=== PATIENT | female | born 1955 | race African-American/Black ===

== ENCOUNTER 2017-07-28 17:01 | Inpatient (IN) | payer MEDICAID, MEDICARE ==
[~2017-07-28] VITALS: Ht 170.2 cm; Wt 62.6 kg
[~2017-07-28 17:01] MED LIST: ACET250T9 PO; ACET325T53 PO; ALBU2.5V38 IH; AMLO5TAB2 PO; ASCO500T9 PO; ASPI81TA31 PO; ATEN100T PO; BUDE10.2 IH; FURO10VI IV; HYDR25TA4 PO; HYDR28.33 TP; INSU100C MC; LACT10SO PO; OLME40TA12 PO; PANT40TA2 PO; POTA-10 PO; PRED20TA PO; SITA100T PO; TIOT18CA3 IH; ZOLP5TAB8 PO
--- NOTE | 2017-07-28 17:09 | NUR ---
pt tried to elope from the hospital. called [facility] and brought the pt back to room. security at bedside
[2017-07-28] MEDS ORDERED: OLANZAPINE 5 MG TABLET PO ONE (17:15)
--- NOTE | 2017-07-28 17:15 | NUR ---
pt refused xyprexa and said zyprexa does not work on her and requested risperdone instead, notifeid
[2017-07-28] MEDS ORDERED: OLANZAPINE 5 MG TABLET ONE (17:19)
[2017-07-28] MEDS ORDERED: LOSA100T15 PO (17:22)
[2017-07-28] MEDS ORDERED: DIVA250T4 PO (17:22)
[2017-07-28] MEDS ORDERED: METF10004 PO (17:22)
[2017-07-28] MEDS ORDERED: LORA2VIA6 IV (17:22)
[2017-07-28] MEDS ORDERED: PIOG45TA19 PO (17:22)
[2017-07-28] MEDS ORDERED: RISP3TAB14 PO (17:22)
[2017-07-28] MEDS ORDERED: HYDR-4076 PO (17:22)
[2017-07-28] MEDS ORDERED: HYDR453. TP (17:22)
[2017-07-28] MEDS ORDERED: OMEP40CA37 PO (17:22)
[2017-07-28] MEDS ORDERED: CITA10TA9 PO (17:22)
[2017-07-28] MEDS ORDERED: CLON0.1T PO (17:22)
[2017-07-28] MEDS ORDERED: DOCU100C36 PO (17:22)
[2017-07-28] MEDS ORDERED: ATOR20TA PO (17:22)
--- NOTE | 2017-07-28 17:47 | NUR ---
pt refuses the risperdone because the risperdone she takes is orange, and this one is white. tried to explain the reason. pt still insisting not to take it at this time.
[2017-07-28] MEDS ORDERED: ALBUTEROL SULFATE 2.5 MG/3 ML NEBU IH PRN ×2 (18:30→19:00)
[2017-07-28] MEDS ORDERED: CLONIDINE HCL 0.1 MG TABLET PO PRN (18:30)
--- NOTE | 2017-07-28 18:32 | NUR ---
[facility] provided for pt per pt request
--- NOTE | 2017-07-28 18:46 | NUR ---
pt transfered to mhu in stable condition. pt calmed down after the code campos.
[2017-07-28] MEDS: ATORVASTATIN 20 MG TABLET PO SCH ×2 (20:24→20:28)
[2017-07-28 20:28] VITALS: BP 112/62
[2017-07-28] MEDS ORDERED: LORAZEPAM 1 MG TABLET PO PRN (20:30)
[2017-07-28] MEDS ORDERED: MAGNESIUM HYDROXIDE 30 ML LIQUID UDC PO PRN (20:30)
[2017-07-28] MEDS ORDERED: MAG HYDROX/AL HYDROX/SIMETH 30 ML LIQUID UDC PO PRN (20:30)
[2017-07-28] MEDS ORDERED: TEMAZEPAM 7.5 MG CAPSULE PO PRN (20:30)
[2017-07-28] MEDS ORDERED: ACETAMINOPHEN 325 MG TABLET PO PRN (20:30)
[2017-07-28] MEDS ORDERED: risperiDONE 1 MG TABLET PO SCH (21:00)
[2017-07-28] MEDS ORDERED: ATORVASTATIN 20 MG TABLET PO SCH (21:00)
[2017-07-28] MEDS ORDERED: diphenhydrAMINE 50 MG/1 ML VIAL IM ONE (21:45)
[2017-07-28] MEDS ORDERED: HALOPERIDOL LACTATE 5 MG/1 ML VIAL IM ONE (21:45)
[2017-07-28] MEDS ORDERED: LORAZEPAM 2 MG/1 ML VIAL IM ONE (21:45)
--- NOTE | 2017-07-28 22:00 | NUR ---
ADMISSION NOTE/CHEMICAL RESTRAINT NOTE: 61 Y.O FEMALE ADMITTED TO MHU FROM ER VIA WHEELCHAIR. Pt ON A 5150 FOR GD. ACCORDING TO THE HOLD, Pt WAS AT [facility] MED/SURG UNIT, AND REFUSING ALL MEDICATIONS AND CARE. Pt HAD INCREASED PARANOIA. Pt IS A POOR HISTORIAN, AND DENIED IMPATIENT ADMISSION, BUT NOW ACKNOWLEDGES MULTIPLE ADMISSIONS, THOUGH REFUSES MEDS, "BECAUSE I'M NOT SICK". Pt AGITATED, NON-COMPLIANT, AND EXIT-SEEKING WITHOUT A PLAN OF SELF CARE. Pt APPEARS TO REFLECT WHAT IS ON THE HOLD, RN CONCURS WITH HOLD. Pt GIVEN PATIENT RIGHTS HANDBOOK, UNIT RULES EXPLAINED. IMMEDIATELY UPON ADMISSION TO THE UNIT, Pt WAS ANGRY, LOUD, AGITATED, DEMANDING OF FOOD, HYGIENE ITEMS, AND PERSONAL BELONGINGS, INCLUDING CONTRABAND. Pt MOSTLY UNCOOPERATIVE WITH ADMISSION PROCESS AND STAFF DIRECTION. Pt REFUSED TO GIVE ANY PERSONAL OR MEDICAL INFORMATION, REFUSED TO SIGN ANY PAPERWORK. Pt ALSO REFUSED SCHEDULED HS LIPTOR, "BECAUSE MY CHOLESTEROL IS FINE". Pt REPEATEDLY DEMANDED TO "SMOKE A CIGARETTE", AND BECAME INCREASINGLY HOSTILE AND BELLIGERENT WHEN TOLD THERE WAS NO SMOKING. NICOTINE PATCH OFFERED AND REFUSED. Pt ATTEMPTED TO HIDE MONEY IN HER SOCK AND REFUSED TO GIVE IT TO STAFF UNTIL SECURITY WAS CALLED. Pt IS ANXIOUS, PARANOID, ACCUSATORY, ARGUMENTATIVE, AND SUSPICIOUS, Pt REFUSES REDIRECTION AT THIS TIME. Pt REFUSED PO PRN ATIVAN, CONTINUED TO TELL, SCREAM, AND POSTURE AT STAFF. DR HERRING NOTIFIED OF Pt BEHAVIOR, AND IM OF ATIVAN 2mg, BENADRYL 25mg, AND HALDOL 5mg ORDERED AND ADMINISTERED WITH SECURITY PRESENT. Pt CALMED AFTER 15 MINUTES AND THEN FELL ASLEEP. BELONGINGS INVENTORIED IN FRONT OF Pt AND OTHER STAFF, REFUSED TO SIGN ALL PAPERWORK. Pt PLACED IN HOSPITAL GOWN AND PANTS, SKIN INTACT. Pt REFUSED PNA VACCINATION. DR ZUNIGA AND DR HERRING NOTIFIED OF ADMISSION, ORDERS RECEIVED.
[2017-07-29] MEDS: PANTOPRAZOLE SODIUM 40 MG TABLET.DR PO SCH (06:34)
--- NOTE | 2017-07-29 06:50 | NUR ---
Pt REFUSED AM LABS AND SCHEDULED PROTONIX. ASSOCIATE [employer] M[employer]UFO.
[2017-07-29 07:30] VITALS: BP 192/124
[2017-07-29] MEDS: METFORMIN HCL 500 MG TABLET PO SCH ×2 (08:00→17:36)
[2017-07-29] MEDS: hydrALAZINE HCL 25 MG TABLET PO SCH ×3 (08:14→16:17)
[2017-07-29] MEDS: ASPIRIN 81 MG TAB.CHEW PO SCH (08:14)
[2017-07-29] MEDS: LOSARTAN POTASSIUM 50 MG TABLET PO SCH (08:15)
[2017-07-29] MEDS: CLONIDINE HCL 0.1 MG TABLET PO PRN (08:18)
[2017-07-29] MEDS: NICOTINE 21 MG/24HR PATCH TD SCH (08:20)
[2017-07-29] MEDS: ASCORBIC ACID 500 MG TABLET PO SCH (08:31)
[2017-07-29] MEDS: DOCUSATE SODIUM 100 MG CAPSULE PO SCH (08:31)
[2017-07-29] MEDS: PIOGLITAZONE HCL 15 MG TABLET PO SCH (08:32)
[2017-07-29] MEDS ORDERED: PIOGLITAZONE HCL 45 MG PO SCH (09:00)
[2017-07-29] MEDS ORDERED: ASCORBIC ACID 500 MG TABLET PO SCH (09:00)
[2017-07-29] MEDS ORDERED: Medication Not On Formulary EA (Omeprazole 40 MG) PO SCH (09:00)
[2017-07-29] MEDS ORDERED: DOCUSATE SODIUM 100 MG CAPSULE PO SCH (09:00)
[2017-07-29] MEDS ORDERED: Medication Not On Formulary EA (Losartan Potassium 100 MG) PO SCH (09:00)
[2017-07-29] MEDS ORDERED: Medication Not On Formulary EA (Metformin Hcl 1,000 MG) PO SCH (09:00)
[2017-07-29] MEDS ORDERED: hydrALAZINE HCL 25 MG TABLET PO SCH (09:00)
[2017-07-29] MEDS ORDERED: ASPIRIN 81 MG TAB.CHEW PO SCH (09:00)
[2017-07-29 09:33] VITALS: BP 168/89
--- NOTE | 2017-07-29 14:56 | NUR ---
Firearms Report: [employer] completed and submitted [employer]arms Report on 07/29/17.
[2017-07-29 15:20] VITALS: BP 157/80
--- NOTE | 2017-07-29 15:36 | NUR ---
Initial Discharge Instructions: Patient reports that she "thinks she owns a house," but cannot remember where the house is or when she lived in it. Per chart, the patient had been living at [facility] [[address] [place] [address]; [phone]] before her 2 week stay at [facility]. Spoke with Cooper at the facility, who states that the patient's bed hold is up. Patient reports she wants to be "sent to her mother's." However, patient would not disclose her mother's name or contact information, stating, "She wouldn't want you to know that." Pt reports that she does not have a primary contact, and does not want SS to attempt to contact her family. SW will continue to speak with the patient and MD regarding appropriate discharge plans. SW will form a safe and proper discharge plan.
[2017-07-29 20:20] VITALS: BP 154/79
[2017-07-29] MEDS: ATORVASTATIN 20 MG TABLET PO SCH (21:00)
--- NOTE | 2017-07-29 21:00 | NUR ---
RECEIVED PATIENT PACING THE MAIN HALLWAY, LOOKING AT WINDOWS, AND STANDING BY THE DOUBLE DOOR, SHE WAS ALSO OBSERVED STARING AT THE "EVACUATION PLAN" SIGNS. (PT IS ABLE TO AMBULATE WITH STEADY GAIT AND ABLE TO MAKE HER NEEDS KNOWN) PT IS NOTED EASILY IRRITABLE, TANGENTIAL, SUSPICIOUS, ARGUMENTATIVE. FLAT AFFECTED. LABILE MOOD. UNABLE TO BE REDIRECTED. SHE REFUSED LIPITOR QHS. SAFETY WAS EMPHASIS. WILL CONTINUE TO MONITOR CLOSELY.
[2017-07-29] MEDS: risperiDONE 1 MG TABLET PO SCH (21:45)
--- NOTE | 2017-07-29 21:45 | NUR ---
PATIENT WAS SEEN BY DR. HERRING. RECEIVED NEW ORDERS TO ADMINISTER RISPERIDONE 3MG PO QHS.
--- NOTE | 2017-07-29 22:15 | NUR ---
PATIENT REFUSED RISPERIDONE 3MG PO QHS. MULTIPLE REDIRECTION GIVEN, YET INEFFECTIVE. WILL CONTINUE TO MONITOR PT CLOSELY.
--- NOTE | 2017-07-30 05:00 | NUR ---
PT SLEPT FOR APPROX. 8HRS THROUGH THE NIGHT. PATIENT APPROACHED THE NURSING STATION. SHE REPORTED TO THIS PACKING LINE WORKER THAT HER ROOMMATE TOOK A HAIR NET THAT SHE HAD INSIDE AND ENVELOPE AND HER POCKET BOOK. UPON INTERVIEW WITH HER ROOMMATE, SHE DENIED TAKING ANYTHING FROM THIS PATIENT. SECURITY WAS CALLED AND THEY SEARCHED ROOMMATE'S DRAWERS; HOWEVER, THEY DID NOT FIND THE ITEMS THAT SHE CLAIMED SHE TOOK. PATIENT WAS REDIRECTED. SHE AGREED TO TAKE A SHOWER.
[2017-07-30] MEDS: PANTOPRAZOLE SODIUM 40 MG TABLET.DR PO SCH (06:46)
[2017-07-30 08:00] VITALS: BP 184/96
[2017-07-30] MEDS: METFORMIN HCL 500 MG TABLET PO SCH ×3 (08:00→17:59)
[2017-07-30] MEDS: NICOTINE 21 MG/24HR PATCH TD SCH ×2 (09:00→09:14)
[2017-07-30] MEDS: DOCUSATE SODIUM 100 MG CAPSULE PO SCH ×2 (09:00→09:14)
[2017-07-30] MEDS: LOSARTAN POTASSIUM 50 MG TABLET PO SCH ×2 (09:00→09:15)
[2017-07-30] MEDS: risperiDONE 1 MG TABLET PO SCH ×4 (09:00→21:42)
[2017-07-30] MEDS: hydrALAZINE HCL 25 MG TABLET PO SCH ×3 (09:16→16:52)
[2017-07-30] MEDS: ASPIRIN 81 MG TAB.CHEW PO SCH (09:16)
[2017-07-30] MEDS: PIOGLITAZONE HCL 15 MG TABLET PO SCH ×2 (09:17→09:34)
[2017-07-30] MEDS: ASCORBIC ACID 500 MG TABLET PO SCH (09:17)
[2017-07-30] MEDS: CLONIDINE HCL 0.1 MG TABLET PO PRN ×2 (09:43→16:52)
[2017-07-30] MEDS ORDERED: DEXTROSE 50% 50 ML DISP.SYRIN IV PRN (12:00)
[2017-07-30 12:24] LABS: BASOPHILS % (AUTO) 0.6 % (0.0-2.0); EOSINOPHILS # (AUTO) 0.1 K/uL (0.0-0.7); EOSINOPHILS % (AUTO) 1.2 % (0.0-7.0); HEMATOCRIT 41.9 % (31.2-41.9); HEMOGLOBIN 14.3 g/dL (10.9-14.3); LYMPHOCYTES # (AUTO) 1.6 K/uL (20.0-40.0); LYMPHOCYTES % (AUTO) 23.3 % (20.5-51.5); MEAN CORPUSCULAR HEMOGLOBIN 29.9 uug (24.7-32.8); MEAN CORPUSCULAR HGB CONC 34 g/dL (32.3-35.6); MEAN CORPUSCULAR VOLUME 87.9 fL (75.5-95.3); MONOCYTES # (AUTO) 0.7 K/uL (2.0-10.0); NEUTROPHILS # (AUTO) 4.5 K/uL (1.8-8.9); NEUTROPHILS % (AUTO) 64.9 % (38.5-71.5); PLATELET COUNT (AUTO) 169 K/uL (179-408); RED BLOOD CELL COUNT(AUTO) 4.77 MIL/uL (3.63-4.92)
--- NOTE | 2017-07-30 12:26 | NUR ---
received patient alert and oriented times rwo with flat affect patient up in chair in day room ststing she s not taking these meds they are not her meds, patient refused all meds except asa 81mg and apresoline patient very argumentive , patient in hier roomm wth no self disclousiure
[2017-07-30 12:32] LABS: CREATININE 0.7 mg/dL (0.6-1.3); MAGNESIUM 1.5 mg/dL (1.8-2.4); PHOSPHOROUS 4.3 mg/dL (2.5-4.9); POTASSIUM 4.4 mmol/L (3.5-5.1)
[2017-07-30 16:00] VITALS: BP 167/66
[2017-07-30] MEDS: BLOOD SUGAR DIAGNOSTIC 1 EACH STRIP VI SCH ×2 (16:30→21:00)
[2017-07-30 20:00] VITALS: BP 158/75
--- NOTE | 2017-07-30 20:30 | NUR ---
RECEIVED PATIENT IN THE DAY ROOM. SHE IS NOTED A/O X 2 ABLE TO AMBULATE WITH STEADY GAIT AND ABLE TO MAKE HER NEEDS KNOWN. SHE ANSWER QUESTIONS WITH FEW WORDS. SHE CONTINUE SUSPICIOUS, EASILY IRRITABLE, GUARDED, FLAT AFFECT, LOW MOOD, ARGUMENTATIVE, ANGRY VOICE AT TIME. SHE REFUSED ACCU-CHECKS, REFUSED LIPITOR AND RISPERIDONE. SHE STATED, "I DON'T TAKE THAT MEDICATION, IT IS BAD FOR ME." MUTIPLE REDIRECTION GIVEN, YET INEFFECTIVE. SAFETY EMPHASIS. WILL CONTINUE TO MONITOR CLOSELY.
[2017-07-30] MEDS: ATORVASTATIN 20 MG TABLET PO SCH (21:00)
--- NOTE | 2017-07-30 21:45 | NUR ---
PT WAS SEEN AND EVALUATED BY DR HERRING HERE IN THE UNIT. PATIENT CONTINUE SUSPICIOUS, POOR INSIGHT AND JUDGMENT TO THE REASON FOR HER ADMISSION. PATIENT WAS EXPLAINED HER MEDICATION: RISPERIDONE MULTIPLE TIMES IN FRONT OF DR HERRING. SHE FINALLY TOOK RISPERIDONE A 3MG PO QHS AFTER MULTIPLE REDIRECTIONS. .
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
--- NOTE | 2017-07-31 06:22 | NUR ---
PATIENT SLEPT FOR APPROX 6.30HRS THROUGH THE NIGHT. SHE CONTINUE DELUSION, AND DISORGANIZED.
[2017-07-31] MEDS: PANTOPRAZOLE SODIUM 40 MG TABLET.DR PO SCH (06:50)
[2017-07-31] MEDS: BLOOD SUGAR DIAGNOSTIC 1 EACH STRIP VI SCH ×4 (06:59→20:26)
--- NOTE | 2017-07-31 06:59 | NUR ---
PATIENT REFUSED ACCUCHECKS AND PROTONIX, SHE IS NOTED EASILY IRRITABLE, BELLIGERENT AND UNREDIRECTABLE. WILL CONTINUE TO MONITOR CLOSELY.
[2017-07-31 07:30] VITALS: BP 158/93
[2017-07-31] MEDS: PIOGLITAZONE HCL 15 MG TABLET PO SCH (08:55)
[2017-07-31] MEDS: risperiDONE 1 MG TABLET PO SCH (08:55)
[2017-07-31] MEDS: hydrALAZINE HCL 25 MG TABLET PO SCH ×3 (08:56→16:36)
[2017-07-31] MEDS: METFORMIN HCL 500 MG TABLET PO SCH ×2 (08:56→18:00)
[2017-07-31] MEDS: ASPIRIN 81 MG TAB.CHEW PO SCH (08:56)
[2017-07-31] MEDS: DOCUSATE SODIUM 100 MG CAPSULE PO SCH (09:00)
[2017-07-31] MEDS: ASCORBIC ACID 500 MG TABLET PO SCH (09:00)
[2017-07-31] MEDS: NICOTINE 21 MG/24HR PATCH TD SCH (09:00)
[2017-07-31] MEDS: LOSARTAN POTASSIUM 50 MG TABLET PO SCH (09:00)
--- NOTE | 2017-07-31 09:15 | NUR ---
RECEIVED Pt IN THE DAY ROOM, A/O X 2 ABLE TO AMBULATE WITH STEADY GAIT AND ABLE TO MAKE HER NEEDS KNOWN. Pt IS EASILY AGITATED AND VERBALLY ABUSIVE. Pt WAS SEEN YELLING AT OTHER PATIENTS IN THE DAY ROOM, NURSE INTERVENED AND WARNED Pt REGARDING YELLING AT OTHER PATIENTS. COMPLIANT WITH CERTAIN MEDS (HTN AND PSYCH MEDS) BUT REFUSES ALL THE OTHER MEDS. WILL CONTINUE TO MONITOR Pt THROUGHOUT THE DAY.
--- NOTE | 2017-07-31 11:30 | NUR ---
Pt REFUSING ACCUCHECK. WHEN ASKED FOR A REASON FOR REFUSAL, Pt REFUSED TO ANSWER.
--- NOTE | 2017-07-31 13:30 | NUR ---
Pt BLOOD PRESSURE PRIOR TO AFTERNOON MEDS WAS 188/84 WITH 97 HR. ADMINISTERED HYDRALAZINE 25 MG PER MD ORDER, AND ADMINISTERED CATAPRES 0.5 MG PO PRN PER MD ORDER. WILL CONTINUE TO MONITOR Pt BP.
[2017-07-31] MEDS: CLONIDINE HCL 0.1 MG TABLET PO PRN ×2 (13:41→21:44)
[2017-07-31 14:32] VITALS: BP 186/93
--- NOTE | 2017-07-31 16:37 | NUR ---
Pt CONTINUES TO REFUSE ACCUCHECK. COMPLIANT WITH BP MONITORING. BP AT THIS TIME IS 170/73 WITH 80 HR. WILL ADMINISTER HYDRALAZINE 25 MG PO PER MD ORDER.
[2017-07-31 20:06] VITALS: BP 172/73
[2017-07-31] MEDS: ATORVASTATIN 20 MG TABLET PO SCH (20:27)
[2017-07-31] MEDS ORDERED: risperiDONE 1 MG/ML UDC PO SCH (21:00)
--- NOTE | 2017-07-31 21:45 | NUR ---
GPS: BLOOD PRESSURE 172/73, CLONIDINE 0.1 MG PO GIVEN.
[2017-08-01] MEDS: PANTOPRAZOLE SODIUM 40 MG TABLET.DR PO SCH (06:18)
--- NOTE | 2017-08-01 06:20 | NUR ---
GPS: REMAIN UNCOOPERATIVE WITH MEDICATION AND NURSING CARE. CONTINUE VERBALLY ABUSIVE TO STAFF. SLEPT 7:30 HRS THROUGH THE NIGHT. RESTING IN BED COMFORTABLY.CONTINUE PLAN OF CARE.
[2017-08-01] MEDS: BLOOD SUGAR DIAGNOSTIC 1 EACH STRIP VI SCH ×4 (06:40→20:08)
[2017-08-01] MEDS: METFORMIN HCL 500 MG TABLET PO SCH ×2 (08:00→18:00)
[2017-08-01] MEDS: ASPIRIN 81 MG TAB.CHEW PO SCH (08:04)
[2017-08-01] MEDS: CLONIDINE HCL 0.1 MG TABLET PO PRN (08:05)
[2017-08-01] MEDS: hydrALAZINE HCL 25 MG TABLET PO SCH ×3 (08:05→16:52)
[2017-08-01] MEDS: risperiDONE 2 MG TABLET PO SCH (08:05)
[2017-08-01 08:06] VITALS: BP 198/97
--- NOTE | 2017-08-01 08:30 | NUR ---
RECEIVED Pt IN ROOM SITTING ON BED EATING BREAKFAST, A/O X 2, SPOKE TO Pt REGARDING ELEVATED BP OF 198/97, TRIED TO ADMINISTER ALL MORNING MEDS BUT Pt REFUSED MOST MEDS. Pt AGREED TO TAKE HYDRALAZINE 25 MG, CATAPRES 0.1 MG PO PRN, AND PSYCH MEDS BUT REFUSED EVERYTHING ELSE. Pt REFUSED TO TAKE LOSARTAN EVEN AFTER ENCOURAGEMENTS FROM NURSE AND CHARGE NURSE. Pt STATED "THAT MEDICATION MAKES ME FEEL BAD AND GIVES ME RASHES." NURSE CONTACTED AND LEFT MESSAGE FOR DR. NADIA MD REGARDING MED CONCERNS, AWAITING FURTHER ORDERS AND INSTRUCTIONS. WILL CONTINUE TO MONITOR Pt BP CLOSELY.
[2017-08-01] MEDS: ASCORBIC ACID 500 MG TABLET PO SCH (08:33)
[2017-08-01] MEDS: LOSARTAN POTASSIUM 50 MG TABLET PO SCH (08:33)
[2017-08-01] MEDS: NICOTINE 21 MG/24HR PATCH TD SCH (08:33)
[2017-08-01] MEDS: DOCUSATE SODIUM 100 MG CAPSULE PO SCH (08:34)
[2017-08-01] MEDS: PIOGLITAZONE HCL 15 MG TABLET PO SCH (08:43)
--- NOTE | 2017-08-01 11:19 | NUR ---
Pt CONTINUES TO REFUSE ACCUCHECK EVEN WITH NURSE ENCOURAGEMENT AND WARNINGS OF EFFECTS THAT COULD RESULT FROM REFUSING MEDS AND SERVICES. Pt IS EASILY AGITATED. DR. SANTOS TALKED TO Pt THIS MORNING AND ADJUSTED FREQUENCY OF RISPERDAL FROM AM TO AMHS. WILL MONITOR BP CLOSELY THROUGHOUT SHIFT.
[2017-08-01 12:38] VITALS: BP 152/86
--- NOTE | 2017-08-01 12:39 | NUR ---
RECHECKED Pt VITAL SIGNS, IMPROVED BP OF 152/84, HR 100. Pt COMPLIANT WITH HTN MEDS THIS AFTERNOON, ADMINISTERED HYDRALAZINE 25 MG PO. WILL CONTINUE TO MONITOR Pt BP CLOSELY.
[2017-08-01 14:05] VITALS: BP 149/75
[2017-08-01] MEDS: AMLODIPINE 5 MG TABLET PO SCH (14:09)
--- NOTE | 2017-08-01 14:18 | NUR ---
RECEIVED ORDER FOR AMLODIPINE BESYLATE 5 MG PO. RECHECKED VS, BP OF 149/75, 98 HR. ADMINISTERED AMLODIPINE BESYLATE 5 MG PO PER MD ORDER. WILL CONTINUE TO CLOSELY MONITOR Pt BP THROUGHOUT SHIFT.
--- NOTE | 2017-08-01 16:30 | NUR ---
Pt CONTINUES TO REFUSE ACCUCHECKS, INITIALLY REFUSED VITAL SIGNS CHECK BUT AGREED AFTER ENCOURAGEMENT. BP STILL ELEVATED AT 150/77 WITH HR OF 82. ADMINISTERED HYDRALAZINE 25 MG PO PER MD ORDER. Pt DENIES HEADACHES OR DISCOMFORT. WILL CONTINUE TO MONITOR BP CLOSELY FOR REMAINDER OF SHIFT.
[2017-08-01] MEDS ORDERED: LORAZEPAM 2 MG/1 ML VIAL IM ONE (17:30)
[2017-08-01] MEDS ORDERED: diphenhydrAMINE 50 MG/1 ML VIAL IM ONE (17:30)
[2017-08-01] MEDS ORDERED: HALOPERIDOL LACTATE 5 MG/1 ML VIAL IM ONE ×2 (17:30)
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
[2017-08-01 19:52] VITALS: BP 151/68
[2017-08-01] MEDS: ATORVASTATIN 20 MG TABLET PO SCH (20:08)
[2017-08-01] MEDS ORDERED: risperiDONE 1 MG TABLET PO SCH (21:00)
[2017-08-02] MEDS: PANTOPRAZOLE SODIUM 40 MG TABLET.DR PO SCH (06:25)
[2017-08-02] MEDS: BLOOD SUGAR DIAGNOSTIC 1 EACH STRIP VI SCH ×4 (06:39→20:16)
--- NOTE | 2017-08-02 06:49 | NUR ---
RECEIVED IN HER BED SLEEPING, APPEARS SEDATED UPON WAKING. Pt NOTED TO BE SLEEPY AND IRRITABLE. REFUSED SCHEDULED HS LIPITOR AND ACCU CHECK. RISKS AND BENEFITS EXPLAINED TO Pt WHO THEN RESPONDED, "I DON'T GIVE A SHIT." Pt APPEARS SUSPICIOUS AND PARANOID WITH REGARD TO HER MEDICATIONS. HS RISPERDAL HELD D/T INCREASED SEDATION S/P IM INJECTION AT 1730. Pt REMAINS UNCOOPERATIVE, ARGUMENTATIVE, OPPOSITIONAL, DEMANDING, LABILE, AND VERBALLY AGGRESSIVE. VS STABLE, NO C/O PAIN. REFUSED AM PROTONIX, LET RN TAKE ACCU CHECK AFTER EXTENSIVE PROMPTING. IN NO ACUTE PHYSICAL DISTRESS. SLEPT 10.30 HOURS.
[2017-08-02] MEDS: METFORMIN HCL 500 MG TABLET PO SCH ×2 (07:42→18:00)
[2017-08-02 08:00] VITALS: BP 174/102
[2017-08-02] MEDS: risperiDONE 2 MG TABLET PO SCH (08:26)
[2017-08-02] MEDS: hydrALAZINE HCL 25 MG TABLET PO SCH ×3 (08:27→17:01)
[2017-08-02] MEDS: ASPIRIN 81 MG TAB.CHEW PO SCH (08:27)
[2017-08-02] MEDS: AMLODIPINE 5 MG TABLET PO SCH (08:27)
[2017-08-02] MEDS: PIOGLITAZONE HCL 15 MG TABLET PO SCH (08:28)
[2017-08-02] MEDS: DOCUSATE SODIUM 100 MG CAPSULE PO SCH (08:28)
[2017-08-02] MEDS: LOSARTAN POTASSIUM 50 MG TABLET PO SCH (08:29)
[2017-08-02] MEDS: ASCORBIC ACID 500 MG TABLET PO SCH (08:29)
[2017-08-02] MEDS: NICOTINE 21 MG/24HR PATCH TD SCH (08:29)
--- NOTE | 2017-08-02 08:30 | NUR ---
RECEIVED Pt IN DAY ROOM, A/O X 2 WITH NOTED AGITATION. Pt TOOK CERTAIN MEDS BUT REFUSED OTHER MEDS INCLUDING INSULIN. EXPLAINED RISKS AND BENEFITS AND REMINDED Pt OF ELEVATED BLOOD SUGAR BUT Pt STILL REFUSED STATING, "I DON'T TAKE INSULIN BECAUSE IT WILL DROP MY BLOOD SUGAR TOO LOW." Pt CONTINUES TO BE EASILY AGITATED AND VERBALLY ABUSIVE. Pt REMINDED OF RULES AND PROTOCOLS THAT HAVE TO BE FOLLOWED IN THE UNIT. WILL CONTINUE TO CLOSELY MONITOR Pt BEHAVIOR. BP THIS MORNING WAS 174/102 WITH 93 HR. Pt CONTINUES TO REFUSE LOSARTAN, GIVEN ROUTINE HTN MEDS: HYDRALAZINE 25 MG PO, AMLODIPINE BESYLATE 5 MG PO, AND CATAPRES 0.1 MG PO PRN PER MD ORDER. WILL CONTINUE TO MONITOR Pt BP CLOSELY THROUGHOUT SHIFT.
[2017-08-02] MEDS: CLONIDINE HCL 0.1 MG TABLET PO PRN (08:32)
--- NOTE | 2017-08-02 11:31 | NUR ---
Pt REFUSED ACCUCHECK STATING, "I ALREADY DID THAT THIS MORNING. I DON'T LIKE GETTING POKED ALL THE TIME." INCREASED AGITATION NOTED WHILE NURSE WAS EXPLAINING RISKS AND BENEFITS OF ACCUCHECKS AND DIABETES MANAGEMENT. Pt REFUSED TO LISTEN AND WALKED AWAY.
[2017-08-02 16:27] VITALS: BP 157/84
--- NOTE | 2017-08-02 16:30 | NUR ---
Pt REFUSING ACCUCHECK AGAIN. STILL EASILY AGITATED AND REFUSING CARE.
[2017-08-02 20:00] VITALS: BP 157/77
[2017-08-02] MEDS: ATORVASTATIN 20 MG TABLET PO SCH (20:13)
[2017-08-02] MEDS: CLONIDINE-TTS 1 PATCH TD SCH (20:16)
[2017-08-02] MEDS ORDERED: risperiDONE 1 MG TABLET PO SCH (21:00)
[2017-08-03] MEDS: PANTOPRAZOLE SODIUM 40 MG TABLET.DR PO SCH (06:16)
[2017-08-03] MEDS: BLOOD SUGAR DIAGNOSTIC 1 EACH STRIP VI SCH ×4 (06:49→21:00)
--- NOTE | 2017-08-03 06:57 | NUR ---
RECEIVED Pt PACING AROUND THE HALLWAY ASKING SELECT STAFF FOR EXTRA SNACKS. WHEN RN APPROACHED Pt AND ASKED TO DO HER ACCU CHECKS, Pt GOT LOUD AND BEGAN DEMANDING COFFEE AND A CIGARETTE. UNIT RULES REINFORCED, BUT Pt WAS ARGUMENTATIVE AND MANIPULATIVE, STATING THAT THE SECURITY GUARDS TOLD HER SHE COULD SMOKE AND THAT THE DAY SHIFT GIVES ME COFFEE WHENEVER I WANT. Pt DENIED COFFEE AND THEN Pt REFUSED TO HAVE HER FINGER STICK DONE. Pt ALSO REFUSED SCHEDULED HS LIPITOR AND RISPERDAL, STATED, I ONLY TAKE THE BROWN PILLS. IT WAS EXPLAINED TO THE Pt THAT THE BROWN RISPERDAL PILLS WERE A DIFFERENT DOSAGE THAN THE PILLS PRESCIBED, BUT Pt STILL REFUSED. Pt REMAINS EASILY IRRITABLE, OPPOSITIONAL AND ARGUMENTATIVE. Pt REFUSED AM ACCU CHECK AND PROTONIX.
--- NOTE | 2017-08-03 07:20 | NUR ---
Bedside report given by nightshift RN. Pt is stable. No significant change in condition last night. Rec'd pt in bed asleep. Easily arousable to name. Pt in no acute distress noted. Sleeping comfortably at this time. Safe environment provided. Will continue to monitor.
[2017-08-03 07:30] VITALS: BP 169/94
[2017-08-03] MEDS: PIOGLITAZONE HCL 15 MG TABLET PO SCH ×2 (08:26→09:00)
[2017-08-03] MEDS: risperiDONE 2 MG TABLET PO SCH (08:26)
[2017-08-03] MEDS: ASCORBIC ACID 500 MG TABLET PO SCH (08:27)
[2017-08-03] MEDS: METFORMIN HCL 500 MG TABLET PO SCH ×2 (08:27→17:26)
[2017-08-03] MEDS: DOCUSATE SODIUM 100 MG CAPSULE PO SCH ×2 (08:27→09:00)
[2017-08-03] MEDS: LOSARTAN POTASSIUM 50 MG TABLET PO SCH ×2 (08:27→09:00)
[2017-08-03] MEDS: ASPIRIN 81 MG TAB.CHEW PO SCH (08:28)
[2017-08-03] MEDS: AMLODIPINE 5 MG TABLET PO SCH (08:28)
[2017-08-03] MEDS: hydrALAZINE HCL 25 MG TABLET PO SCH ×3 (08:29→17:26)
[2017-08-03] MEDS: NICOTINE 21 MG/24HR PATCH TD SCH (08:29)
--- NOTE | 2017-08-03 08:35 | NUR ---
Upon administering pt's due morning medications, pt laid out all her medications on her overbed table and picked out which one she prefers to take. Pt displayed extreme sense of paranoia when she claimed that the medications she picked not to take are the wrong ones because of the numbering put on there by the manufacturers. Reassured pt that that medications all come in their original packaging and are thoroughly scanned and checked for accuracy however pt became agitated. Pt refused medications that she preferred not to take.
[2017-08-03] MEDS: CLONIDINE HCL 0.1 MG TABLET PO PRN ×2 (08:51→17:27)
--- NOTE | 2017-08-03 13:47 | NUR ---
Pt with scheduled Hydralazine Hcl 25mg PO for HTN. Pt refused BP check. Educated pt on risks vs benefits of medication compliance for her HTN management. However, pt became agitated. Offered x3 and pt became more agitated with each separate attempt. Pt in bed, sitting up at edge of bed. No acute distress noted. Will respect resident's wishes.
--- NOTE | 2017-08-03 14:55 | NUR ---
Pt allowed SAMPLE SAWYER to check her BP. BP at 190/81. Offered Hydralazine 25mg again and pt agreed. However, when presented with the medication in its original packaging, pt stated that it is wrong medication and she does not need it. Educated pt on her elevated BP but pt continued to refuse and show agitation.
[2017-08-03 15:34] VITALS: BP 190/81
[2017-08-03] MEDS: INSULIN REGULAR, HUMAN 300 UNIT/3 ML VIAL SQ PRN (17:25)
[2017-08-03 20:00] VITALS: BP 127/74
--- NOTE | 2017-08-03 20:00 | NUR ---
RECEIVED PT IN HER ROOM. SHE IS NOTED A/O X 3. SHE IS ABLE TO AMBULATE WITH STEADY GAIT AND ABLE TO MAKE HER NEEDS KNOWN. SHE IS NOTED NEEDY, EASILY IRRITABLE, SUSPICIOUS, LABILE BX. BLUNTED AFFECTED. SHE AGREED TO HAVE HER V/S TAKEN; HOWEVER, SHE REFUSED ACCU- CHECK. SHE STATED, "THEY ALREADY CHECKED MY BLOOD, IT WAS OKAY AT 149, I DON'T NEED MY BLOOD TO BE CHECKS SO MANY TIMES. I DON'T NEED IT". MULTIPLE REDIRECTION GIVEN, YET INEFFECTIVE. SHE CONTINUE PREOCCUPIED WITH MEDICATIONS AND SIDE EFFECT; SHE STATED. "I WILL TAKE THE RISPERIDONE ONLY IF THE PILL IS ORANGE, I WILL NOT TAKE THE WHITE ONE. THE WHITE ONE MAKES ME SICK AND IS POISON TO MY BODY". PHARMACY WAS CALLED TO CHANGE TO RISPERIDONE 2MG (THAT IS ORANGE/YELLOW) GIVE 1.5 TABS TO MAKE 3MG. SHE REQUESTED. SAFETY WAS EMPHASIS. WILL CONTINUE TO MONITOR CLOSELY.
[2017-08-03] MEDS ORDERED: risperiDONE 2 MG TABLET PO SCH (21:00)
[2017-08-03] MEDS: ATORVASTATIN 20 MG TABLET PO SCH (21:00)
--- NOTE | 2017-08-03 21:00 | NUR ---
PATIENT WAS ABLE TO COMPLY WITH RISPERIDONE 3MG QHS (RISPERIDONE 2MG, GIVEN 1.5 TABS, YELLOW PILLS SHE REQUESTED). SHE REFUSED LIPITOR. SHE REQUESTED INFORMATION ABOUT LIPITOR, IT WAS GIVEN, BUT CONTINUE REFUSING. PT CONTINUE NEEDY, SUSPICIOUS, DEMANDING. WILL CONTINUE TO MONITOR CLOSELY.
[2017-08-04] MEDS: PANTOPRAZOLE SODIUM 40 MG TABLET.DR PO SCH (06:52)
[2017-08-04] MEDS: BLOOD SUGAR DIAGNOSTIC 1 EACH STRIP VI SCH ×4 (06:52→20:19)
--- NOTE | 2017-08-04 06:53 | NUR ---
PATIENT SLEPT FOR APPROX 5.30 HRS THROUGH THE NIGHT. SHE WAS COMPLIANT WITH ACCU CHECK THIS MORNING WITH BG OF 123. HOWEVER, SHE REFUSED PROTONIX. PATIENT CONTINUE NEEDY, SUSPICIOUS EASILY IRRITABLE. SHE REFUSED TO SHOWER.
[2017-08-04 07:30] VITALS: BP 148/85
[2017-08-04] MEDS: risperiDONE 2 MG TABLET PO SCH (08:12)
[2017-08-04] MEDS: ASPIRIN 81 MG TAB.CHEW PO SCH (08:13)
[2017-08-04] MEDS: hydrALAZINE HCL 25 MG TABLET PO SCH ×3 (08:13→17:24)
[2017-08-04] MEDS: DOCUSATE SODIUM 100 MG CAPSULE PO SCH (08:14)
[2017-08-04] MEDS: ASCORBIC ACID 500 MG TABLET PO SCH (08:14)
[2017-08-04] MEDS: AMLODIPINE 5 MG TABLET PO SCH (08:14)
[2017-08-04] MEDS: METFORMIN HCL 500 MG TABLET PO SCH ×2 (08:16→17:24)
--- NOTE | 2017-08-04 08:16 | NUR ---
PATIENT IN HER ROOM, SHE IS NOTED CALM AT THIS TIME. NEEDY. SHE WAS PARTIALLY COMPLIANT WITH QAM MEDICATION REGIMENT. SHE ONLY AGREED TO TAKE METFORMIN 500MG INSTEAD OF 1000MG. WILL CONTINUE TO MONITOR.
[2017-08-04] MEDS: LOSARTAN POTASSIUM 50 MG TABLET PO SCH (09:00)
[2017-08-04] MEDS: PIOGLITAZONE HCL 15 MG TABLET PO SCH (09:00)
[2017-08-04] MEDS: NICOTINE 21 MG/24HR PATCH TD SCH (09:00)
[2017-08-04] MEDS: INSULIN REGULAR, HUMAN 300 UNIT/3 ML VIAL SQ PRN ×2 (12:29→12:31)
[2017-08-04] MEDS: KETOCONAZOLE 2% CREAM 30 GM TUBE TP SCH ×3 (14:00→20:10)
[2017-08-04 15:19] VITALS: BP 151/72
--- NOTE | 2017-08-04 17:25 | NUR ---
patient refused insulin coverage times two abd only too 500mg of metformin and then wanted to use nizoral creme after she washed her face all treatments on her terms , still delusional
--- NOTE | 2017-08-04 18:35 | NUR ---
patient has been argumentive and not understandind staff or DOCTOR S ABOUT TREATMENT VERY CONTROLLING .[facility] REFUSED 1700 INSULIN AND ONLY TOO 500MG OF METFORMIN , VERY PARANOID ABOUT STAFF GIVING HER WRONG MEDICATIONS, NEEDS REDIRECTION FREQUENTLY , STILL SHE DOES NOT CONFIRM
[2017-08-04 20:00] VITALS: BP 163/74
--- NOTE | 2017-08-04 20:25 | NUR ---
RECEIVED PATIENT IN THE HALLWAY. SHE IS NOTED A/O X 2. SHE IS ABLE TO WALK WITH STEADY GAIT AND ABLE TO MAKE HER NEEDS KNOWN. SHE CONTINUE NEEDY, SUSPICIOUS BUT SHE IS GAINING INSIGHT INTO THE REASON FOR HER ADMISSION TO [facility]HU. SHE DENIES HEARING VOICES, DENIES AH/VH/SI. SHE IS ABLE TO INTERACT WITH STAFF PROVIDING CARE. HER B/P AT 1999 WAS 163/79MMHG AND PULSE 102. PT IN NO DISTRESS. CATAPRES 0.1MG PO PRN WAS GIVEN. WE WILL MONITOR B/P IN ONE HOUR. ACCU CHECK BGL QHS IS 132. PATIENT REFUSED INSULIN, SHE STATED, "NO, I AM NOT GETTING INSULIN FOR THAT NUMBER, IT IS GOOD FOR ME". SAFETY WITH EMPHASIS, WE WILL CONTINUE TO MONITOR CLOSELY.
[2017-08-04] MEDS: CLONIDINE HCL 0.1 MG TABLET PO PRN (20:34)
[2017-08-04] MEDS: ATORVASTATIN 20 MG TABLET PO SCH (21:00)
[2017-08-04] MEDS: BENZTROPINE MESYLATE 1 MG TABLET PO SCH (21:46)
[2017-08-04] MEDS: HALOPERIDOL 5 MG TABLET PO SCH (21:46)
--- NOTE | 2017-08-04 21:51 | NUR ---
PATIENT WAS COMPLIANT WITH HALDOL 5MG PO AND COGENTIN 1MG PO QHS. HOWEVER, SHE CONTINUE REFUSING LIPITOR. WILL CONTINUE TO MONITOR CLOSELY.
--- NOTE | 2017-08-04 22:10 | NUR ---
B/P WAS RE-ASSESS: 138/69MMHG AND PULSE 81. WILL CONTINUE TO MONITOR.
[2017-08-04 22:37] VITALS: BP 138/69
[2017-08-05] MEDS: BLOOD SUGAR DIAGNOSTIC 1 EACH STRIP VI SCH ×4 (06:45→20:53)
--- NOTE | 2017-08-05 06:46 | NUR ---
PATIENT SLEPT FOR APPROX 4.0 HRS THROUGH THE NIGHT. SHE WAS RELUCTANT TO HAVE HER ACCUCHECK DONE, BUT AGREED AT THE END. WILL CONTINUE TO MONITOR CLOSELY.
[2017-08-05] MEDS: PANTOPRAZOLE SODIUM 40 MG TABLET.DR PO SCH (07:00)
[2017-08-05 07:30] VITALS: BP 145/72
[2017-08-05] MEDS: hydrALAZINE HCL 25 MG TABLET PO SCH ×3 (08:51→17:32)
[2017-08-05] MEDS: HALOPERIDOL 5 MG TABLET PO SCH ×2 (08:51→20:53)
[2017-08-05] MEDS: BENZTROPINE MESYLATE 1 MG TABLET PO SCH ×2 (08:51→20:53)
[2017-08-05] MEDS: DOCUSATE SODIUM 100 MG CAPSULE PO SCH ×2 (08:52→09:00)
[2017-08-05] MEDS: ASCORBIC ACID 500 MG TABLET PO SCH (08:52)
[2017-08-05] MEDS: AMLODIPINE 5 MG TABLET PO SCH (08:52)
[2017-08-05] MEDS: LOSARTAN POTASSIUM 50 MG TABLET PO SCH ×2 (08:52→09:00)
[2017-08-05] MEDS: ASPIRIN 81 MG TAB.CHEW PO SCH (08:52)
[2017-08-05] MEDS: KETOCONAZOLE 2% CREAM 30 GM TUBE TP SCH ×2 (08:54→17:32)
[2017-08-05] MEDS: NICOTINE 21 MG/24HR PATCH TD SCH ×2 (08:54→09:00)
[2017-08-05] MEDS: METFORMIN HCL 500 MG TABLET PO SCH ×2 (08:56→17:31)
[2017-08-05] MEDS: PIOGLITAZONE HCL 15 MG TABLET PO SCH (09:00)
[2017-08-05] MEDS: INSULIN REGULAR, HUMAN 300 UNIT/3 ML VIAL SQ PRN (10:53)
--- NOTE | 2017-08-05 10:54 | NUR ---
ACCUCHECK DONE BLOOD SUGAR IS 141, OFFERED INSULIN 2 UNITS, PATIENT REFUSED SAYING SHE NEVER TAKES INSULIN. WILL CONTINUE TO MONITOR.
[2017-08-05 14:36] VITALS: BP 121/73
[2017-08-05 20:00] VITALS: BP 140/73
[2017-08-05] MEDS: ATORVASTATIN 20 MG TABLET PO SCH (20:53)
--- NOTE | 2017-08-05 20:56 | NUR ---
RECEIVED Pt IN DAY ROOM, A/O X 2 DEMANDING FOR ORANGE JUICE FROM VICE PRESIDENT INVESTOR RELATIONS. Pt WAS BECOMING EASILY AGITATED AND WENT TO HER ROOM. Pt AGREED TO HAVE ACCUCHECK DONE, BLOOD SUGAR WAS 182. Pt REFUSED INSULIN AND ASKED FOR SNACKS. NURSE EXPLAINED WHY ORANGE JUICE CANNOT BE GIVEN DUE TO BLOOD SUGAR. Pt WAS AGITATED AND BEGAN YELLING AT NURSE TO GET OUT OF ROOM. ROUTINE NIGHT MEDS WERE OFFERED, Pt INITIALLY REFUSED BUT LATER AGREED TO TAKE PSYCHOTROPIC MEDS. HOWEVER, Pt REFUSED LIPITOR. DENIES PAIN AT THIS TIME, DENIES SI, AGREES TO CFS.
[2017-08-06] MEDS: PANTOPRAZOLE SODIUM 40 MG TABLET.DR PO SCH (07:00)
--- NOTE | 2017-08-06 07:00 | NUR ---
RECEIVED REPORT FROM RECREATION ADVISER. PATIENT IN BED ASLEEP, NO ACUTE DISTRESS NOTED. SELECTIVE ABOUT MEDICATIONS, COMPLIANT WITH ACCUCHECK BUT STILL REFUSES INSULIN PER RECREATION ADVISER. LAST BS 135. NO C/O PAIN OR DISCOMFORT. COMFORT MEASURES PROVIDED. WILL CONTINUE TO MONITOR CLOSELY.
[2017-08-06] MEDS: BLOOD SUGAR DIAGNOSTIC 1 EACH STRIP VI SCH ×4 (07:08→20:29)
[2017-08-06 08:00] VITALS: BP 154/85
[2017-08-06] MEDS: HALOPERIDOL 5 MG TABLET PO SCH ×2 (08:29→20:21)
[2017-08-06] MEDS: hydrALAZINE HCL 25 MG TABLET PO SCH ×3 (08:29→18:02)
[2017-08-06] MEDS: BENZTROPINE MESYLATE 1 MG TABLET PO SCH ×2 (08:30→20:21)
[2017-08-06] MEDS: ASPIRIN 81 MG TAB.CHEW PO SCH (08:30)
[2017-08-06] MEDS: AMLODIPINE 5 MG TABLET PO SCH (08:30)
[2017-08-06] MEDS: ASCORBIC ACID 500 MG TABLET PO SCH (08:31)
[2017-08-06] MEDS: KETOCONAZOLE 2% CREAM 30 GM TUBE TP SCH ×2 (08:38→16:47)
[2017-08-06] MEDS: NICOTINE 21 MG/24HR PATCH TD SCH (08:38)
[2017-08-06] MEDS: LOSARTAN POTASSIUM 50 MG TABLET PO SCH (08:38)
[2017-08-06] MEDS: DOCUSATE SODIUM 100 MG CAPSULE PO SCH (08:39)
[2017-08-06] MEDS: PIOGLITAZONE HCL 15 MG TABLET PO SCH (08:39)
[2017-08-06] MEDS: METFORMIN HCL 500 MG TABLET PO SCH ×2 (08:40→18:02)
[2017-08-06] MEDS: CLONIDINE HCL 0.1 MG TABLET PO PRN (12:24)
[2017-08-06 16:19] VITALS: BP 137/70
--- NOTE | 2017-08-06 17:48 | NUR ---
PATIENT CURRENTLY IN DAY ROOM EATING DINNER. ACCUCHECK DONE BS 135, REFUSES 2UNITS OF INSULIN. NO ACUTE DISTRESS NOTED. ALL NEEDS ATTENDED AND ANTICIPATED. WILL CONTINUE TO MONITOR CLOSELY.
[2017-08-06 20:00] VITALS: BP 149/68
[2017-08-06] MEDS: ATORVASTATIN 20 MG TABLET PO SCH (20:21)
[2017-08-07] MEDS: PANTOPRAZOLE SODIUM 40 MG TABLET.DR PO SCH (06:03)
[2017-08-07] MEDS: BLOOD SUGAR DIAGNOSTIC 1 EACH STRIP VI SCH ×4 (06:15→21:00)
--- NOTE | 2017-08-07 06:30 | NUR ---
gps: Remain uncooperative with nursing care and hyperverbal. refused Protonix am dose. blood sugar 119 mg/dl this morning.slept 6 hrs through the night. watching tv in day room. continue monitoring for safety.
[2017-08-07 07:30] VITALS: BP 159/78
[2017-08-07] MEDS: HALOPERIDOL 5 MG TABLET PO SCH ×3 (08:01→21:30)
[2017-08-07] MEDS: BENZTROPINE MESYLATE 1 MG TABLET PO SCH ×2 (08:01→21:30)
[2017-08-07] MEDS: METFORMIN HCL 500 MG TABLET PO SCH ×2 (08:01→18:17)
[2017-08-07] MEDS: hydrALAZINE HCL 25 MG TABLET PO SCH ×3 (08:02→16:10)
[2017-08-07] MEDS: AMLODIPINE 5 MG TABLET PO SCH (08:02)
[2017-08-07] MEDS: ASPIRIN 81 MG TAB.CHEW PO SCH (08:02)
[2017-08-07] MEDS: ASCORBIC ACID 500 MG TABLET PO SCH (08:02)
[2017-08-07] MEDS: DOCUSATE SODIUM 100 MG CAPSULE PO SCH (08:08)
[2017-08-07] MEDS: PIOGLITAZONE HCL 15 MG TABLET PO SCH (08:08)
[2017-08-07] MEDS: NICOTINE 21 MG/24HR PATCH TD SCH (08:09)
[2017-08-07] MEDS: LOSARTAN POTASSIUM 50 MG TABLET PO SCH (08:09)
--- NOTE | 2017-08-07 08:42 | NUR ---
received patient alert and oriented times X3 TOOK SOME OF HER MEDS ,STILL REFUSING SOME OF THEM,MD MADE AWARE,V/S ARE STABLE .
[2017-08-07] MEDS: KETOCONAZOLE 2% CREAM 30 GM TUBE TP SCH ×2 (09:24→16:10)
[2017-08-07 14:57] VITALS: BP 143/77
[2017-08-07] MEDS: ATORVASTATIN 20 MG TABLET PO SCH (21:00)
--- NOTE | 2017-08-07 21:35 | NUR ---
RECEIVED Pt IN DAY ROOM READING MAGAZINE. A/O X 2, WAS COMPLIANT WITH CERTAIN MEDS BUT REFUSED CARE FROM FURNITURE STAINER AT FIRST. AFTER ENCOURAGEMENT FROM NURSE, Pt AGREED TO HAVE VITAL SIGNS TAKEN. REFUSED HS ACCUCHECK AND LIPITOR BUT AGREED TO TAKE HALDOL AND COGENTIN. Pt RESTING AND SLEEPING IN BED.
[2017-08-07 21:36] VITALS: BP 150/90
[2017-08-08] MEDS: PANTOPRAZOLE SODIUM 40 MG TABLET.DR PO SCH (06:26)
[2017-08-08] MEDS: BLOOD SUGAR DIAGNOSTIC 1 EACH STRIP VI SCH ×4 (06:36→21:02)
--- NOTE | 2017-08-08 06:59 | NUR ---
Pt SLEPT WELL THROUGHOUT THE NIGHT. WOKE UP THIS MORNING AND REFUSED PROTONIX BUT AGREED TO GET ACCUCHECK. NO AGGRESSIVE BX NOTED.
[2017-08-08 07:30] VITALS: BP 132/77
--- NOTE | 2017-08-08 07:35 | NUR ---
Shift report given by nightshift RN. Pt in fair condition. Compliant with medication and plan of care during noc shift. Pt in bed, asleep but easily arousable to name. No acute distress noted. Appears comfortable. Will continue to monitor for change.
[2017-08-08] MEDS: METFORMIN HCL 500 MG TABLET PO SCH ×2 (08:50→17:48)
[2017-08-08] MEDS: PIOGLITAZONE HCL 15 MG TABLET PO SCH ×2 (08:50→09:00)
[2017-08-08] MEDS: ASPIRIN 81 MG TAB.CHEW PO SCH (08:51)
[2017-08-08] MEDS: hydrALAZINE HCL 25 MG TABLET PO SCH ×3 (08:51→17:48)
[2017-08-08] MEDS: AMLODIPINE 5 MG TABLET PO SCH (08:51)
[2017-08-08] MEDS: ASCORBIC ACID 500 MG TABLET PO SCH (08:51)
[2017-08-08] MEDS: BENZTROPINE MESYLATE 1 MG TABLET PO SCH ×2 (08:52→21:00)
[2017-08-08] MEDS: LOSARTAN POTASSIUM 50 MG TABLET PO SCH ×2 (08:52→09:00)
[2017-08-08] MEDS: HALOPERIDOL 5 MG TABLET PO SCH ×4 (08:52→21:00)
[2017-08-08] MEDS: DOCUSATE SODIUM 100 MG CAPSULE PO SCH ×2 (08:52→09:00)
[2017-08-08] MEDS: NICOTINE 21 MG/24HR PATCH TD SCH (08:53)
[2017-08-08] MEDS: KETOCONAZOLE 2% CREAM 30 GM TUBE TP SCH ×2 (08:53→17:47)
--- NOTE | 2017-08-08 12:15 | NUR ---
Pt's FSBS check result 145. Explained to pt that she is to receive 2units of Regular Insulin per s/s. Pt refused. Explained to pt risks vs benefits but pt insisted she does not need insulin. Will monitor pt for s/s of hypo/hyperglycemia.
[2017-08-08 16:40] VITALS: BP 138/87
[2017-08-08] MEDS: INSULIN REGULAR, HUMAN 300 UNIT/3 ML VIAL SQ PRN ×2 (17:13→21:02)
--- NOTE | 2017-08-08 18:17 | NUR ---
Pt remained in fair condition during shift. Continues to be labile and hyperverbal. Pt continues to be easily agitated. Needs frequent redirection from staff. Pt continues to pick and choose which medications she wants to take including insulin. Pt is paranoid about her health. Redirected as needed. Attends activities of choice and interacts with staff. Will continue to monitor for change.
[2017-08-08 20:30] VITALS: BP 156/81
[2017-08-08] MEDS: ATORVASTATIN 20 MG TABLET PO SCH (21:00)
[2017-08-08] MEDS ORDERED: CARBAMAZEPINE 200 MG TABLET PO ONE (22:30)
--- NOTE | 2017-08-08 23:16 | NUR ---
patient remained in fair condition.patient hyperverbal and hyperactive. compliant with some of her meds, but some meds she refused to take it like lipitor and tegretol. Blood sugar checked 164, refused insulin coverage. ambulatory. continent of bowel and bladder. had some periods of agitation, took haldol. patient very inquisitive with her medications. Seen by Dr Ahn, and explained need of tegretol. Patient argumentative with Dr Ahn. Will monitor patient.
[2017-08-09] MEDS: PANTOPRAZOLE SODIUM 40 MG TABLET.DR PO SCH (06:43)
[2017-08-09] MEDS: BLOOD SUGAR DIAGNOSTIC 1 EACH STRIP VI SCH ×4 (06:44→21:00)
--- NOTE | 2017-08-09 07:20 | NUR ---
GPS: Shift report given by nightshift RN. Rec'd pt awake,standing next to nurse's station asking about some clothes that were delivered for her last night. Reoriented pt that there were no clothes delivered last night. Pt became agitated and walked away to her room. In no acute distress noted. Will continue to monitor for further episodes of behavioral manifestations.
[2017-08-09 07:30] VITALS: BP 153/86
[2017-08-09] MEDS: METFORMIN HCL 500 MG TABLET PO SCH ×2 (08:37→17:33)
[2017-08-09] MEDS: ASPIRIN 81 MG TAB.CHEW PO SCH (08:37)
[2017-08-09] MEDS: CARBAMAZEPINE 200 MG TABLET PO SCH ×3 (08:37→21:00)
[2017-08-09] MEDS: ASCORBIC ACID 500 MG TABLET PO SCH (08:37)
[2017-08-09] MEDS: LOSARTAN POTASSIUM 50 MG TABLET PO SCH ×2 (08:38→08:51)
[2017-08-09] MEDS: AMLODIPINE 5 MG TABLET PO SCH (08:38)
[2017-08-09] MEDS: HALOPERIDOL 5 MG TABLET PO SCH ×4 (08:38→20:54)
[2017-08-09] MEDS: PIOGLITAZONE HCL 15 MG TABLET PO SCH ×2 (08:39→08:50)
[2017-08-09] MEDS: NICOTINE 21 MG/24HR PATCH TD SCH ×2 (08:39→08:52)
[2017-08-09] MEDS: BENZTROPINE MESYLATE 1 MG TABLET PO SCH ×2 (08:39→20:54)
[2017-08-09] MEDS: hydrALAZINE HCL 25 MG TABLET PO SCH ×3 (08:39→17:33)
[2017-08-09] MEDS: KETOCONAZOLE 2% CREAM 30 GM TUBE TP SCH ×2 (08:39→17:00)
[2017-08-09] MEDS: DOCUSATE SODIUM 100 MG CAPSULE PO SCH ×2 (08:39→08:51)
[2017-08-09 15:34] VITALS: BP 141/67
[2017-08-09] MEDS: INSULIN REGULAR, HUMAN 300 UNIT/3 ML VIAL SQ PRN (16:58)
[2017-08-09 20:42] VITALS: BP 164/81
[2017-08-09 21:00] VITALS: BP 146/88
[2017-08-09] MEDS: CLONIDINE-TTS 1 PATCH TD SCH (21:00)
[2017-08-09] MEDS: ATORVASTATIN 20 MG TABLET PO SCH (21:00)
--- NOTE | 2017-08-09 21:09 | NUR ---
GPS: RECEIVED PATIENT SITTING IN DAY ROOM.WATCHING TV. REFUSED TERETOL 200 MG PO.CATAPRES TTS1 PATCH,LIPITOR 20 MG PO.AND BLOOD SUGAR CHECK. TOOK HALDOL AND COGENTIN PO HS DOSE. DR HERRING INTO TO ASSESS PATIENT CONTINUE MONITORING FOR SAFETY.
--- NOTE | 2017-08-10 06:22 | NUR ---
GPS: REMAIN UNCOOPERATIVE WITH MEDICATION AND CARE. REFUSED PROTONIX THIS MORNING.SLEPT 3:30 HRS THROUGH THE MORNING.BLOOD SUGAR 147MG/DL THIS MORNING.PATIENT IS VERBALLY ABUSIVE TO STAFF,HYPERVERBAL. MOST OF THE TIME. CONTINUE MONITORING FOR SAFETY.
[2017-08-10] MEDS: PANTOPRAZOLE SODIUM 40 MG TABLET.DR PO SCH (06:27)
--- NOTE | 2017-08-10 07:15 | NUR ---
GPS: Shift report given by nightshift TRACK WALKER. Pt with behavior of agitation and refusing medications/care during noc shift. Continues to be irritable on approach. Continues to be paranoid about her medications. Rec'd in bed asleep. In no acute distress noted. Will continue to monitor.
[2017-08-10 07:30] VITALS: BP 126/64
[2017-08-10] MEDS: BLOOD SUGAR DIAGNOSTIC 1 EACH STRIP VI SCH ×2 (07:30→12:06)
[2017-08-10] MEDS: ASCORBIC ACID 500 MG TABLET PO SCH (08:37)
[2017-08-10] MEDS: ASPIRIN 81 MG TAB.CHEW PO SCH (08:37)
[2017-08-10] MEDS: METFORMIN HCL 500 MG TABLET PO SCH (08:37)
[2017-08-10] MEDS: HALOPERIDOL 5 MG TABLET PO SCH ×2 (08:37→13:00)
[2017-08-10] MEDS: AMLODIPINE 5 MG TABLET PO SCH (08:37)
[2017-08-10] MEDS: BENZTROPINE MESYLATE 1 MG TABLET PO SCH (08:37)
[2017-08-10] MEDS: LOSARTAN POTASSIUM 50 MG TABLET PO SCH (08:47)
[2017-08-10] MEDS: PIOGLITAZONE HCL 15 MG TABLET PO SCH (08:47)
[2017-08-10] MEDS: NICOTINE 21 MG/24HR PATCH TD SCH (08:47)
[2017-08-10] MEDS: KETOCONAZOLE 2% CREAM 30 GM TUBE TP SCH (08:47)
[2017-08-10] MEDS: CARBAMAZEPINE 200 MG TABLET PO SCH (08:47)
[2017-08-10] MEDS: DOCUSATE SODIUM 100 MG CAPSULE PO SCH (08:47)
[2017-08-10] MEDS: hydrALAZINE HCL 25 MG TABLET PO SCH ×2 (09:00→13:42)
[2017-08-10 13:42] VITALS: BP 158/67
--- NOTE | 2017-08-10 15:05 | NUR ---
DC Note: Patient will be discharged to [facility] [[address] [place] [address]; [phone]] via taxi at 4pm. Spoke with Gina at the facility who states they are ready to accept the patient today ([phone]). Left message for patients sisterSarah ([phone]) to alert about patients discharge. Patient is aware and agreeable with discharge plans. Patient will follow-up at the facility with Dr. Jamel Schmitt (Special Education Coordinator) and with Dr. Maddy Greene (Psychiatrist) ). For smoking cessation, patient was referred to [employer] 800-LUNGUSA and [employer] [phone]. Patient was also given a list of Medicare-accepting clinicians for therapy. Patient was provided with outpatient mental health resources to [facility] , [facility] Ventura , and the National Su[employer] .
--- NOTE | 2017-08-10 16:15 | NUR ---
Pt left facility via taxi. Accompanied by security staff and [employer] to the exit to meet taxi. Pt in fair condition. Denies pain. Took discharge paperwork and all belongings and valuables with her. V/S SAMIR.
== END 2017-08-10 16:15 | DRG 885 ==
LOC: ER 17:04 → GPS 18:55
PROVIDERS: ADMIT Psychiatry & Neurology Psychiatry; ATTEND Internal Medicine
DX: F20.0 Paranoid schizophrenia (principal); E11.65 Type 2 diabetes mellitus with hyperglycemia; Z91.14 Patient's other noncompliance with medication regimen; E78.5 Hyperlipidemia, unspecified; I10 Essential (primary) hypertension; I25.10 Atherosclerotic heart disease of native coronary artery without angina pectoris; Z79.84 Long term (current) use of oral hypoglycemic drugs; Z91.19 Patient's noncompliance with other medical treatment and regimen; Z91.5 Personal history of self-harm; Z79.51 Long term (current) use of inhaled steroids; Z79.82 Long term (current) use of aspirin; Z79.899 Other long term (current) drug therapy; L21.9 Seborrheic dermatitis, unspecified; J44.9 Chronic obstructive pulmonary disease, unspecified; K21.9 Gastro-esophageal reflux disease without esophagitis; F32.9 Major depressive disorder, single episode, unspecified; J45.909 Unspecified asthma, uncomplicated
CPT/HCPCS: 36415; 83735; 84100; 85025; A4663; J1200; J1630; J1815; J2060